=== PATIENT | male | born 1935 | race Caucasian/White ===

== ENCOUNTER → 2017-06-19 | Outpatient (CLI) | payer OTHER | END | disposition home or self-care (01) | LOC: PCVCCLINIC 14:58 | PROVIDERS: ATTEND Internal Medicine Cardiovascular Disease | DX: I25.10 Atherosclerotic heart disease of native coronary artery without angina pectoris (principal); E78.00 Pure hypercholesterolemia, unspecified; I26.99 Other pulmonary embolism without acute cor pulmonale; I48.0 Paroxysmal atrial fibrillation; I10 Essential (primary) hypertension; K21.9 Gastro-esophageal reflux disease without esophagitis; I44.0 Atrioventricular block, first degree; M19.90 Unspecified osteoarthritis, unspecified site; Z79.82 Long term (current) use of aspirin; Z87.891 Personal history of nicotine dependence; Z88.8 Allergy status to other drugs, medicaments and biological substances | CPT/HCPCS: 93005; G0463 ==

== ENCOUNTER → 2018-01-22 | Outpatient (CLI) | payer OTHER | END | disposition home or self-care (01) | LOC: PCVCCLINIC 14:06 | DX: I48.0 Paroxysmal atrial fibrillation (principal); I10 Essential (primary) hypertension; I26.99 Other pulmonary embolism without acute cor pulmonale; R93.1 Abnormal findings on diagnostic imaging of heart and coronary circulation; D68.59 Other primary thrombophilia; I77.9 Disorder of arteries and arterioles, unspecified; Z87.891 Personal history of nicotine dependence; Z79.899 Other long term (current) drug therapy | CPT/HCPCS: 80061; 93005; G0463 ==

== ENCOUNTER → 2018-07-24 | Outpatient (CLI) | payer OTHER ==
--- NOTE | 2018-07-24 14:24 | PCVCIMAG ---
APPROVED REPORT Study performed: 07/24/2018 13:15:12 EXAM: Comprehensive 2D, Doppler, and color-flow Echocardiogram Patient Location: Echo lab Status: routine BSA: 1.99 HR: 60 bpmBP: 150/80 mmHg Rhythm: NSR Other Information Study Quality: Adequate Risk Factors: Cardiac Risk Factors: HTN Indications Parox A Fib, hx of pulmonary embolism 2D Dimensions IVSd: 11.64 (7-11mm) LVDd: 39.32 mm PWd: 11.11 (7-11mm)Ascending Ao: 37.82 (22-36mm) LVDs: 29.02 (25-40mm) Left Atrium: 37.30 (27-40mm) Aortic Root: 37.07 mm LV Single Plane 4CH: 65.70 % LV Single Plane 2CH: 67.68 % Biplane EF: 66.9 % Volumes Left Atrial Volume (Systole) Single Plane 4CH: 59.06 mLSingle Plane 2CH: 80.20 mL LA ESV Index: 42.00 mL/m2 Aortic Valve AoV Peak Anthony.: 1.40 m/s AO Peak Gr.: 7.87 mmHgLVOT Max P.10 mmHg LVOT Max V: 1.01 m/s Mitral Valve E/A Ratio: 0.8 MV Decel. Time: 254.18 ms MV E Max Anthony.: 0.59 m/s MV A Anthony.: 0.73 m/s MV PHT: 73.71 ms IVRT: 103.81 ms Pulmonary Valve PV Peak Anthony.: 1.14 m/sPV Peak Gr.: 5.24 mmHg Pulmonary Vein P Vein S: 0.26 m/sP Vein A: 0.37 m/s P Vein D: 0.36 m/sP Vein A Dur.: 152.2 msec P Vein S/D Ratio: 0.72 Tricuspid Valve TR Peak Anthony.: 2.60 m/s TR Peak Gr.: 27.12 mmHg Left Ventricle The left ventricle is normal size. There is normal LV segmental wall motion. There is normal left ventricular wall thickness. Left ventricular systolic function is normal. The left ventricular ejection fraction is within the normal range. LVEF is 65%. Grade I - abnormal relaxation pattern. Right Ventricle The right ventricle is normal size. The right ventricular systolic function is normal. Atria Left atrium is mildly dilated. The right atrium size is normal. Aortic Valve The aortic valve is normal in structure. Trace aortic regurgitation. There is no aortic valvular stenosis. Mitral Valve The mitral valve is normal in structure. Mild mitral regurgitation. No evidence of mitral valve stenosis. Tricuspid Valve The tricuspid valve is normal in structure. Mild tricuspid regurgitation with PAP of 34 mmHg. Pulmonic Valve The pulmonary valve is normal in structure. There is no pulmonic valvular regurgitation. Great Vessels The aortic root is normal in size. IVC is normal in size and collapses >50% with inspiration. Pericardium There is no pericardial effusion. There is no pleural effusion. <Conclusion> The left ventricle is normal size. Left ventricular systolic function is normal. The left ventricular ejection fraction is within the normal range. LVEF is 65%. Grade I - abnormal relaxation pattern. Left atrium is mildly dilated. Trace aortic regurgitation. Mild mitral regurgitation. The aortic root is normal in size. There is no pericardial effusion.
== END | disposition home or self-care (01) ==
LOC: PCVCIMAG 13:07
PROVIDERS: ATTEND Internal Medicine Cardiovascular Disease
DX: I48.0 Paroxysmal atrial fibrillation (principal); I10 Essential (primary) hypertension; I05.1 Rheumatic mitral insufficiency
CPT/HCPCS: 93306

== ENCOUNTER → 2018-08-13 | Outpatient (CLI) | payer OTHER ==
--- NOTE | 2018-08-13 15:14 | PCVCIMAG ---
APPROVED REPORT Laterality: Bilateral Indications Stenosis Doppler Spectral Velocity Analysis PSV / EDVPSV / EDV ECA (R) 71 / 5 cm/sECA (L) 155 / 13 cm/s dICA (R) 62 / 17 cm/sdICA (L) 69 / 21 cm/s Peter (R) 81 / 25 cm/smICA (L) 94 / 34 cm/s pICA (R) 85 / 25 cm/spICA (L) 118 / 41 cm/s Bulb (R) 75 / 17 cm/sBulb (L) 73 / 18 cm/s dCCA (R) 64 / 22 cm/sdCCA (L) 65 / 16 cm/s mCCA (R) 70 / 15 cm/smCCA (L) 80 / 20 cm/s Vert (R) 53 / 17 cm/sVert (L) 44 / 10 cm/s ICA/CCA 1.33 ICA/CCA 1.82 Findings The right carotid bulb has mild-moderate plaque. The right proximal internal carotid artery shows <40% stenosis. The right common carotid artery shows no significant stenosis. The right external carotid artery shows no significant stenosis. The left carotid bulb has moderate plaque. The left proximal internal carotid artery shows <40% stenosis. The left common carotid artery shows no significant stenosis. The left external carotid artery shows no significant stenosis. Conclusion 1. Right internal carotid artery stenosis (<40%) 2. Left internal carotid artery stenosis (<40%) 3. Antegrade vertebral flow
== END | disposition home or self-care (01) ==
LOC: PCVCIMAG 14:54
PROVIDERS: ATTEND Internal Medicine Cardiovascular Disease
DX: I65.23 Occlusion and stenosis of bilateral carotid arteries (principal); I77.9 Disorder of arteries and arterioles, unspecified
CPT/HCPCS: 93880

== ENCOUNTER → 2019-04-17 | Outpatient (CLI) | payer OTHER ==
--- NOTE | 2019-04-17 15:42 | PCVCIMAG ---
EXAM: BILATERAL RENAL ULTRASOUND AND BILATERAL RENAL DUPLEX INDICATION: Hypertension FINDINGS: Right kidney: Length measures 11.3 cm. No hydronephrosis or extensive renal scarring. 2.0 cm benign cyst upper pole. Right renal duplex: Adequate technical quality. Increased systolic velocity 354 cm/s consistent with 80% proximal renal artery stenosis. The aortic to renal artery ratio is 3.6. The renal vein is patent. Left kidney: Length measures 10.8 cm. No hydronephrosis or extensive renal scarring. Left renal duplex: Adequate technical quality. No sonographic evidence of renal artery stenosis. The aortic to renal artery ratio is 1.1. The renal vein is patent. Bladder: No obvious abnormalities. IMPRESSION: 80% proximal right renal artery stenosis. No left renal artery stenosis. LOC:[id number]
== END | disposition home or self-care (01) ==
LOC: PCVCIMAG 11:44
PROVIDERS: ATTEND Internal Medicine Cardiovascular Disease
DX: I70.1 Atherosclerosis of renal artery (principal); I10 Essential (primary) hypertension
CPT/HCPCS: 76770; 93975

== ENCOUNTER → 2019-04-17 | Outpatient (CLI) | payer OTHER | END | disposition home or self-care (01) | LOC: PCVCCLINIC 10:00 | PROVIDERS: ATTEND Internal Medicine Cardiovascular Disease | DX: I25.10 Atherosclerotic heart disease of native coronary artery without angina pectoris (principal); I48.0 Paroxysmal atrial fibrillation; E11.9 Type 2 diabetes mellitus without complications; E78.5 Hyperlipidemia, unspecified; C91.90 Lymphoid leukemia, unspecified not having achieved remission; Z88.1 Allergy status to other antibiotic agents | CPT/HCPCS: 36415; 80061; 93005; G0463 ==